=== PATIENT | male | born 1960 | race Caucasian/White ===

== ENCOUNTER 2021-02-20 13:55 | Emergency (ER) | payer MEDICARE ==
[~2021-02-20] VITALS: Ht 175.3 cm; Wt 111.1 kg
== END 2021-02-20 16:30 | disposition home or self-care (01) ==
LOC: ER 14:47
DX: L03.113 Cellulitis of right upper limb (principal); F15.10 Other stimulant abuse, uncomplicated
CPT/HCPCS: 99283